=== PATIENT | male | born 1990 | race African-American/Black ===

== ENCOUNTER 2024-06-17 09:02 | Outpatient (CLI) | payer OTHER | END 2024-06-17 09:03 | disposition home or self-care (01) | LOC: CSHSLEEP 09:02 | PROVIDERS: ATTEND Family Medicine | DX: G47.33 Obstructive sleep apnea (adult) (pediatric) (principal); R53.83 Other fatigue; E66.9 Obesity, unspecified; Z68.31 Body mass index [BMI] 31.0-31.9, adult; R06.83 Snoring; G47.10 Hypersomnia, unspecified | CPT/HCPCS: 95800 ==